=== PATIENT | male | born 1950 | race Caucasian/White ===

== ENCOUNTER 2016-06-20 21:21 | Emergency (ER) | payer OTHER ==
[~2016-06-20] VITALS: Ht 182.9 cm; Wt 112.1 kg
[~2016-06-20 21:21] MED LIST: ACCUPRIL; ACCUPRIL10 MG PO; ACCUPRIL20 MG PO; ASPIRIN325 MG PO; BENADRYL25 MG PO; LIPITOR10 MG PO; METOPROLOL PO; METOPROLOL SUCC25 MG PO; PEPCID40 MG PO; PLAVIX; PLAVIX75 MG PO; PREDNISONE20 MG PO; ROBITUSSIN AC,T10 ML PO; TOPROL XL PO; ZITHROMAX250 MG PO; ZYRTEC10 M3 PO
[2016-06-20 22:02] LABS: HEMATOCRIT 44.7 % (38.0-50.0); MCH 30.2 PG (29.0-34.0); MCHC 33.3 G/DL (30.0-36.0); MCV 90.7 FL (86-99); MEAN PLAT.VOLUME 9.9 uM^3 (9.0-12.4); PLATELET COUNT 263 K/uL (156-360); RBC DIS.WIDTH-CV 13.2 % (11.8-14.6); RBC DIS.WIDTH-SD 42.9 % (39-53); RED BLOOD COUNT 4.93 M/uL (4.00-5.50); WHITE BLOOD COUNT 11.1 K/uL (4.1-10.2)
[2016-06-20 22:11] LABS: CHLORIDE 105 mEq/L (99-109); SODIUM 140 mEq/L (136-147)
[2016-06-20 22:13] LABS: GLUCOSE 314 mg/dL (70-99)
[2016-06-20 22:15] LABS: ANION GAP 10 MEQ/L (2-14); TOTAL BILIRUBIN 0.3 mg/dL (0.0-1.0)
[2016-06-20 22:17] LABS: ALKALINE PHOSPHATASE 63 IU/L (3-129); GFR ESTIMATE (CALCULATED) 54 mL/min/
[2016-06-20 22:18] LABS: UREA NITROGEN (BUN) 12 mg/dL (9-23)
[2016-06-21 00:16] LABS: POINT-OF-CARE METER ID UU14100415; POINT-OF-CARE USER ID 611181311
[2016-06-21 00:28] VITALS: BP 157/92
== END 2016-06-21 00:30 | disposition home or self-care (01) ==
LOC: EME 21:21
PROVIDERS: Emergency Medicine
DX: K42.9 Umbilical hernia without obstruction or gangrene (principal); E86.0 Dehydration; N28.9 Disorder of kidney and ureter, unspecified; R73.9 Hyperglycemia, unspecified
CPT/HCPCS: 80053; 81003; 82948; 85027; 99281; 99283

== ENCOUNTER → 2016-07-31 | Day surgery (SDC) | payer OTHER ==
[~2016-07-31] VITALS: Ht 182.9 cm; Wt 93.0 kg
[2016-07-31 08:13] VITALS: BP 163/87
== END | disposition home or self-care (01) ==
LOC: SDC
PROC: 0WJFXZZ Inspection of Abdominal Wall, External Approach (ICD-10-PCS; principal; 2016-07-31)
DX: K42.9 Umbilical hernia without obstruction or gangrene (principal); Z53.09 Procedure and treatment not carried out because of other contraindication; Z79.01 Long term (current) use of anticoagulants
CPT/HCPCS: J0131; J0690; J1100; J2250; J2405; J2710; J3010

== ENCOUNTER 2016-08-13 05:05 | Day surgery (SDC) | payer OTHER ==
[~2016-08-13] VITALS: Ht 182.9 cm; Wt 100.0 kg
[2016-08-13 05:54] VITALS: BP 159/88
[2016-08-13 06:27] LABS: POINT-OF-CARE METER ID UU14174212
[2016-08-13] MEDS ORDERED: METFORMIN HCL1000 MG PO (06:56)
[2016-08-13] MEDS ORDERED: COLACE100 MG PO (09:38)
[2016-08-13] MEDS ORDERED: PERCOCET 5/31 TABLET PO (09:38)
[2016-08-13 10:50] VITALS: BP 152/88
[2016-08-13 12:13] VITALS: BP 133/80
== END 2016-08-13 12:55 | disposition home or self-care (01) ==
LOC: SDC 05:05
PROVIDERS: Surgery
PROC: 0WUF4JZ Supplement Abdominal Wall with Synthetic Substitute, Percutaneous Endoscopic Approach (ICD-10-PCS; principal; 2016-08-13)
DX: K43.9 Ventral hernia without obstruction or gangrene (principal); I25.10 Atherosclerotic heart disease of native coronary artery without angina pectoris; I10 Essential (primary) hypertension; K21.9 Gastro-esophageal reflux disease without esophagitis; E78.00 Pure hypercholesterolemia, unspecified; Z87.891 Personal history of nicotine dependence; Z79.01 Long term (current) use of anticoagulants; I25.2 Old myocardial infarction; Z79.82 Long term (current) use of aspirin; Z95.1 Presence of aortocoronary bypass graft
CPT/HCPCS: 82948; C1781; J0330; J0690; J1100; J1170; J2250; J2405; J2710; J3010

== ENCOUNTER 2016-10-17 00:37 | Emergency (ER) | payer OTHER ==
[~2016-10-17] VITALS: Ht 182.9 cm; Wt 113.1 kg
[~2016-10-17 00:37] MED LIST changes: +COLACE100 MG PO; +METFORMIN HCL1000 MG PO; +PERCOCET 5/31 TABLET PO
[2016-10-17 00:49] VITALS: BP 150/80
[2016-10-17 01:54] LABS: EOSINOPHIL COUNT 0.3 K/uL (0-0.3); HEMATOCRIT 41.3 % (38.0-50.0); IMMATURE GRANULOCYTE (%) 0.6 % (0.0-0.7); IMMATURE GRANULOCYTE COUNT 0.1 K/uL; INSTRUMENT ABS NEUTROPHIL CT 4.4 K/uL; LYMPHOCYTE COUNT 2.5 K/uL (1.0-2.8); MCH 29.6 PG (29.0-34.0); MCHC 32.2 G/DL (30.0-36.0); MCV 91.8 FL (86-99); MEAN PLAT.VOLUME 8.9 uM^3 (9.0-12.4); MONOCYTE (%) 12.4 % (3-12); NEUTROPHIL (%) 53.5 % (45-76); NEUTROPHIL COUNT 4.4 K/uL (1.8-6.4); PLATELET COUNT 222 K/uL (156-360); RBC DIS.WIDTH-SD 43.7 % (39-53); WHITE BLOOD COUNT 8.2 K/uL (4.1-10.2)
[2016-10-17 02:00] LABS: CHLORIDE 105 mEq/L (99-109); POTASSIUM 4.1 mEq/L (3.7-5.4); SODIUM 140 mEq/L (136-147)
[2016-10-17 02:02] LABS: GLUCOSE 134 mg/dL (70-99)
[2016-10-17 02:04] LABS: ANION GAP 7 MEQ/L (2-14)
[2016-10-17 02:05] LABS: PROTHROMBIN TIME 10.6 (9.2-11.2); PTT 25.3 (25-32)
[2016-10-17 02:06] LABS: GFR ESTIMATE (CALCULATED) > 59 mL/min/
[2016-10-17 02:07] LABS: UREA NITROGEN (BUN) 10 mg/dL (9-23)
[2016-10-17] MEDS ORDERED: KEFLEX500 MG PO (03:34)
== END 2016-10-17 04:02 | disposition home or self-care (01) ==
LOC: EME 00:37
PROVIDERS: Emergency Medicine
DX: L03.115 Cellulitis of right lower limb (principal); I10 Essential (primary) hypertension; E11.9 Type 2 diabetes mellitus without complications; Z79.84 Long term (current) use of oral hypoglycemic drugs; Z95.1 Presence of aortocoronary bypass graft; Z79.82 Long term (current) use of aspirin; Z87.891 Personal history of nicotine dependence
CPT/HCPCS: 80048; 85025; 85610; 85730; 93971; 99281; 99283

== ENCOUNTER 2017-01-08 23:42 | Emergency (ER) | payer OTHER ==
[~2017-01-08] VITALS: Ht 182.9 cm; Wt 111.0 kg
[~2017-01-08 23:42] MED LIST changes: +KEFLEX500 MG PO
[2017-01-09] MEDS ORDERED: ULTRACET1 TABLET PO (01:41)
[2017-01-09] MEDS ORDERED: MOTRIN600 MG PO (01:41)
[2017-01-09 02:01] VITALS: BP 147/85
== END 2017-01-09 02:03 | disposition home or self-care (01) ==
LOC: EME 23:42 → EXP 23:42
DX: M25.562 Pain in left knee (principal)
CPT/HCPCS: 73564; 99281; 99283

== ENCOUNTER 2017-04-20 23:48 | Emergency (ER) | payer OTHER ==
[~2017-04-20] VITALS: Ht 182.9 cm; Wt 113.0 kg
[~2017-04-20 23:48] MED LIST changes: +MOTRIN600 MG PO; +ULTRACET1 TABLET PO
[2017-04-21] MEDS ORDERED: PERCOCET 5/31 TABLET PO (01:03)
[2017-04-21 01:11] LABS: HEMATOCRIT 42.3 % (38.0-50.0); HEMOGLOBIN 14.2 G/DL (12.5-16.6); MCH 30.9 PG (29.0-34.0); MCHC 33.6 G/DL (30.0-36.0); PLATELET COUNT 256 K/uL (156-360); RBC DIS.WIDTH-CV 12.9 % (11.8-14.6); RBC DIS.WIDTH-SD 43.5 % (39-53); WHITE BLOOD COUNT 8.4 K/uL (4.1-10.2)
[2017-04-21 01:25] LABS: CHLORIDE 102 mEq/L (99-109); POTASSIUM 3.9 mEq/L (3.7-5.4); SODIUM 138 mEq/L (136-147)
[2017-04-21 01:26] LABS: GLUCOSE 160 mg/dL (70-99)
[2017-04-21 01:30] LABS: GFR ESTIMATE (CALCULATED) > 59 mL/min/ (58.99-99999)
[2017-04-21 01:31] LABS: UREA NITROGEN (BUN) 7 mg/dL (9-23)
[2017-04-21 01:33] LABS: CREATINE KINASE 154 IU/L (1-294)
[2017-04-21 01:49] VITALS: BP 145/90
== END 2017-04-21 01:49 | disposition home or self-care (01) ==
LOC: EME 23:48
PROVIDERS: Physician Assistant
DX: M79.605 Pain in left leg (principal); G89.29 Other chronic pain; I25.2 Old myocardial infarction; K21.9 Gastro-esophageal reflux disease without esophagitis; Z95.1 Presence of aortocoronary bypass graft; I25.10 Atherosclerotic heart disease of native coronary artery without angina pectoris; Z79.82 Long term (current) use of aspirin; Z79.84 Long term (current) use of oral hypoglycemic drugs
CPT/HCPCS: 80048; 82550; 85027; 99281; 99283; J1885

== ENCOUNTER 2017-05-14 09:16 | Emergency (ER) | payer OTHER ==
[~2017-05-14] VITALS: Ht 182.9 cm; Wt 90.9 kg
[2017-05-14] MEDS ORDERED: MOTRIN800 MG PO (12:50)
[2017-05-14 13:11] VITALS: BP 145/92
== END 2017-05-14 13:11 | disposition home or self-care (01) ==
LOC: EME 09:16
DX: M16.0 Bilateral primary osteoarthritis of hip (principal); G89.29 Other chronic pain; I25.2 Old myocardial infarction; K21.9 Gastro-esophageal reflux disease without esophagitis; I25.10 Atherosclerotic heart disease of native coronary artery without angina pectoris; Z95.1 Presence of aortocoronary bypass graft; Z79.82 Long term (current) use of aspirin; Z87.891 Personal history of nicotine dependence
CPT/HCPCS: 73522; 99281; 99283

== ENCOUNTER 2017-06-07 13:46 | Emergency (ER) | payer OTHER ==
[~2017-06-07] VITALS: Ht 182.9 cm; Wt 112.5 kg
[~2017-06-07 13:46] MED LIST changes: +MOTRIN800 MG PO
[2017-06-07] MEDS ORDERED: NORCO 5/3251 TABLET PO (16:47)
[2017-06-07] MEDS ORDERED: PERCOCET 5/31 TABLET PO (17:06)
[2017-06-07 17:22] VITALS: BP 153/88
== END 2017-06-07 17:39 | disposition home or self-care (01) ==
LOC: EME 13:46
DX: G89.29 Other chronic pain (principal); M25.552 Pain in left hip; M79.605 Pain in left leg; Z91.81 History of falling; M13.852 Other specified arthritis, left hip; I10 Essential (primary) hypertension; Z95.1 Presence of aortocoronary bypass graft; Z79.82 Long term (current) use of aspirin; Z79.84 Long term (current) use of oral hypoglycemic drugs; Z87.891 Personal history of nicotine dependence
CPT/HCPCS: 73502

== ENCOUNTER 2017-07-04 22:18 | Emergency (ER) | payer OTHER ==
[~2017-07-04] VITALS: Ht 182.9 cm; Wt 107.5 kg
[~2017-07-04 22:18] MED LIST changes: +NORCO 5/3251 TABLET PO
[2017-07-05] MEDS ORDERED: PREDNISONE20 MG PO (00:54)
[2017-07-05 01:13] VITALS: BP 138/86
== END 2017-07-05 01:13 | disposition home or self-care (01) ==
LOC: EME 22:18
DX: M54.32 Sciatica, left side (principal); Z87.891 Personal history of nicotine dependence
CPT/HCPCS: 99281; 99283; J1885; J7512

== ENCOUNTER 2017-07-17 09:06 | Emergency (ER) | payer OTHER ==
[~2017-07-17] VITALS: Ht 182.9 cm; Wt 76.0 kg
[2017-07-17 10:00] VITALS: BP 116/89
[2017-07-17] MEDS ORDERED: ULTRAM50 MG PO (10:08)
== END 2017-07-17 10:29 | disposition home or self-care (01) ==
LOC: EME 09:06
DX: M25.462 Effusion, left knee (principal); K21.9 Gastro-esophageal reflux disease without esophagitis; I25.10 Atherosclerotic heart disease of native coronary artery without angina pectoris; I25.2 Old myocardial infarction; Z95.1 Presence of aortocoronary bypass graft; Z90.49 Acquired absence of other specified parts of digestive tract; Z87.891 Personal history of nicotine dependence; Z79.82 Long term (current) use of aspirin
CPT/HCPCS: 73564; 99281; 99285

== ENCOUNTER 2017-09-11 19:22 | Emergency (ER) | payer OTHER ==
[~2017-09-11] VITALS: Ht 182.9 cm; Wt 91.0 kg
[~2017-09-11 19:22] MED LIST changes: +ULTRAM50 MG PO
[2017-09-11 20:53] LABS: HEMATOCRIT 39.2 % (38.0-50.0); HEMOGLOBIN 12.4 G/DL (12.5-16.6); MCH 29.5 PG (29.0-34.0); MCHC 31.6 G/DL (30.0-36.0); MCV 93.1 FL (86-99); PLATELET COUNT 400 K/uL (156-360); RBC DIS.WIDTH-CV 13.8 % (11.8-14.6); RED BLOOD COUNT 4.21 M/uL (4.00-5.50); WHITE BLOOD COUNT 9.1 K/uL (4.1-10.2)
[2017-09-11 21:02] LABS: ALBUMIN 3.9 g/dL (3.2-4.8)
[2017-09-11 21:03] LABS: CHLORIDE 97 mEq/L (99-109); POTASSIUM 4.2 mEq/L (3.7-5.4); SODIUM 137 mEq/L (136-147)
[2017-09-11 21:05] LABS: GLUCOSE 172 mg/dL (70-99); TOTAL PROTEIN 7.3 g/dL (6.4-8.3)
[2017-09-11 21:07] LABS: TOTAL BILIRUBIN 0.2 mg/dL (0.0-1.0)
[2017-09-11 21:08] LABS: ALKALINE PHOSPHATASE 81 IU/L (3-129)
[2017-09-11 21:09] LABS: CREATININE 0.8 mg/dL (0.6-1.3); GFR ESTIMATE (CALCULATED) > 59 mL/min/ (58.99-99999)
[2017-09-11 21:10] LABS: AST (GOT) 13 IU/L (2-34); UREA NITROGEN (BUN) 19 mg/dL (9-23)
[2017-09-11 21:12] LABS: ALT (GPT) 14 IU/L (3-49)
[2017-09-11 22:48] LABS: APPEARANCE CLEAR ((CLEAR)); BILIRUBIN NEGATIVE; BLOOD NEGATIVE; COLOR YELLOW ((YELLOW)); GLUCOSE (STRIP) NEGATIVE; KETONES NEGATIVE; LEUKOCYTES NEGATIVE; NITRITE NEGATIVE; PROTEIN (STRIP) NEGATIVE; SPECIFIC GRAVITY 1.033 (1.000-1.030); UCUL ADDED? NO; UROBILINOGEN 0.2 MG/DL (0.2-1.0)
[2017-09-11] MEDS ORDERED: FLEXERIL10 MG PO (23:34)
[2017-09-11] MEDS ORDERED: MOTRIN600 MG PO (23:34)
[2017-09-12] MEDS ORDERED: MEDROL DOSEPAK4 MG PO (01:26)
[2017-09-12] MEDS ORDERED: PERCOCET 5/31 TABLET PO (01:26)
[2017-09-12 01:53] VITALS: BP 156/83
== END 2017-09-12 01:53 | disposition home or self-care (01) ==
LOC: EME 19:22 → RME 19:22
PROVIDERS: Nurse Practitioner Family
DX: R10.31 Right lower quadrant pain (principal); M16.0 Bilateral primary osteoarthritis of hip; D35.01 Benign neoplasm of right adrenal gland; D35.02 Benign neoplasm of left adrenal gland; K76.9 Liver disease, unspecified; I10 Essential (primary) hypertension; K21.9 Gastro-esophageal reflux disease without esophagitis; I25.10 Atherosclerotic heart disease of native coronary artery without angina pectoris; I25.2 Old myocardial infarction; Z79.82 Long term (current) use of aspirin; Z79.84 Long term (current) use of oral hypoglycemic drugs; Z87.891 Personal history of nicotine dependence; Z95.1 Presence of aortocoronary bypass graft; Z98.84 Bariatric surgery status; Z87.19 Personal history of other diseases of the digestive system; Z90.49 Acquired absence of other specified parts of digestive tract
CPT/HCPCS: 73502; 74177; 80053; 81003; 85027; 99281; 99285; J2060; J3010; J7030; J7512

== ENCOUNTER 2017-11-21 11:44 | Day surgery (SDC) | payer OTHER ==
[~2017-11-21] VITALS: Ht 182.9 cm; Wt 104.3 kg
[~2017-11-21 11:44] MED LIST changes: +FLEXERIL10 MG PO; +GLUCOPHAGE1000 MG PO; +MEDROL DOSEPAK4 MG PO; -METFORMIN HCL1000 MG PO
[2017-11-21 12:23] VITALS: BP 140/70
[2017-11-21 12:34] VITALS: BP 140/75
[2017-11-21 16:08] VITALS: BP 130/68
[2017-11-21 17:10] VITALS: BP 114/69
[2017-11-21 18:19] VITALS: BP 118/66
== END 2017-11-21 18:20 | disposition home or self-care (01) ==
LOC: SDC 11:44
PROVIDERS: Orthopaedic Surgery
PROC: 0SBD4ZZ Excision of Left Knee Joint, Percutaneous Endoscopic Approach (ICD-10-PCS; principal; 2017-11-21)
DX: S83.232A Complex tear of medial meniscus, current injury, left knee, initial encounter (principal); S83.92XA Sprain of unspecified site of left knee, initial encounter; X58.XXXA Exposure to other specified factors, initial encounter; M94.262 Chondromalacia, left knee; E11.9 Type 2 diabetes mellitus without complications; E78.00 Pure hypercholesterolemia, unspecified; I11.0 Hypertensive heart disease with heart failure; I50.9 Heart failure, unspecified; Z79.84 Long term (current) use of oral hypoglycemic drugs; I25.2 Old myocardial infarction; Z79.02 Long term (current) use of antithrombotics/antiplatelets; Z79.82 Long term (current) use of aspirin; Z95.1 Presence of aortocoronary bypass graft; Z95.5 Presence of coronary angioplasty implant and graft
CPT/HCPCS: 82948; J0131; J0171; J0330; J0690; J1170; J1200; J2250; J3010; S0020